=== PATIENT | male | born 1990 | race Caucasian/White ===

== ENCOUNTER 2017-04-29 01:05 | Emergency (ER) | payer BC ==
[~2017-04-29] VITALS: Ht 177.8 cm; Wt 77.0 kg
[2017-04-29 01:17] VITALS: BP 123/74; PULSE 97; TEMP 36.8; O2SAT 97; Ht 177.8 cm; Wt 77.0 kg
[2017-04-29] MEDS ORDERED: FEXO1TAB49 PO (01:53)
[2017-04-29 02:05] LABS: BUN/CREATININE RATIO 11.9 (10-20); CALCIUM 9.1 mg/dl (8.5-10.1); CREATININE 1.13 mg/dl (0.60-1.40); POTASSIUM 4.2 mmol/L (3.5-5.1)
--- NOTE | 2017-04-29 02:52 | EMERGENCY ROOM VISIT NOTE ---
History Report prepared by Bruno: Faith Khan Under the Supervision of: Dr. Cecily Arredondo D.O. First contact with patient: 01:12 Chief Complaint: ALCOHOL OVERDOSE Stated Complaint: ETOH Nursing Triage Summary: found passed out. 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 The patient presents to the ED by EMS. He states that he is a [employer] alumni who is visiting for the game. He has been drinking all day today. He has nowhere to stay and was found sleeping in a lobby. He denies any fall or injury. The history is limited due to the patient' s intoxication. Source of History: patient History Limited By: intoxication Onset: PATTERN ATTENDANT Position: other (global) Quality: other (alcohol intoxication) Timing: other (persistent) Note: Pt denies fall or injury. Review of Systems See HPI for pertinent positives & negatives. A total of 10 systems reviewed and were otherwise negative. Past Medical & Surgical Medical Problems: (1) ACNE NEC (2) Asthma (3) History of repair of inguinal hernia Family History No pertinent family history stated. Social History Smoking Status: Never Smoker Alcohol Use: occasionally Occupation Status: employed Current/Historical Medications Scheduled Fexofenadine Hcl (Sophia Allergy), 1 TAB PO DAILY Allergies Coded Allergies: Dust (Verified Allergy, Unknown, + allergy test, 04/29/17) Molds & Smuts (Verified Allergy, Unknown, + allergy test, 04/29/17) POLLEN (Verified Allergy, Unknown, + allergy test, 04/29/17) Physical Exam Vital Signs Date Time Temp Pulse Resp B/P (MAP) Pulse Ox O2 Delivery O2 Flow Rate FiO2 04/29/17 01:49 Room Air 04/29/17 01:49 Room Air 04/29/17 01:17 36.8 97 18 123/74 97 Room Air 04/29/17 01:15 95 Physical Exam GENERAL: faint smell of alcohol, alert, well appearing, well nourished, no distress, non-toxic EYE EXAM: normal conjunctiva, PERRL and EOM's grossly intact OROPHARYNX: no exudate, no erythema, lips, buccal mucosa, and tongue normal and mucous membranes are moist NECK: supple, no nuchal rigidity, no adenopathy, non-tender LUNGS: Clear to auscultation. Normal chest wall mechanics no wheezes/rhonchi/ rales HEART: no murmurs, S1 normal and S2 normal , no chest wall tenderness/crepitus ABDOMEN: abdomen soft, non-tender, normo-active bowel sounds, no masses, no rebound or guarding. BACK: Back is symmetrical on inspection and there is no deformity, no midline tenderness, no CVA tenderness. SKIN: no rashes and no bruising UPPER EXTREMITIES: upper extremities are grossly normal. Normal pulses, no evidence of trauma. LOWER EXTREMITIES: No pitting edema. No evidence of trauma, no deformities, normal pulses. NEURO EXAM: Normal sensorium, cranial nerves II-XII grossly intact, normal speech, no gross weakness of arms, no gross weakness of legs. Medical Decision & Procedures Laboratory Results 04/29/17 01:31 Test 04/29/17 01:31 Anion Gap 8.0 mmol/L (3-11) Est Creatinine Clear Calc Drug Dose 104.1 ml/min Estimated GFR () 104.9 Estimated GFR (Non- 90.5 BUN/Creatinine Ratio 11.9 (10-20) Calcium Level 9.1 mg/dl (8.5-10.1) Ethyl Alcohol mg/dL 203.0 mg/dl (0-3) Laboratory results per my review. ED Course 0143: The patient was evaluated in room A11A. A complete history and physical exam was performed. 0246: Upon reevaluation, the patient is stable. I discussed the findings and the treatment plan with the patient and his sober friend. They verbalize agreement and understanding. He was discharged home with his sober friend. Medical Decision Differential diagnosis includes etiologies such as alcohol intoxication, toxicologic, infection, hypoglycemia, electrolyte abnormalities, cardiac sources , intracerebral event, neurologic, as well as others were entertained. Patient monitored her for several hours, eventually a sober friend did come. Patient stable vital signs, no evidence of trauma and no history of trauma per his recollection upon increased sobriety. Patient tolerating by mouth and had a steady gait. Discussed with patient responsible use of alcohol, symptoms to watch and return for, he verbalized understanding was agreeable with plan. I have a low suspicion for any additional traumatic injury, or other organic pathology at this time. Medication Reconcilliation Current Medication List: was personally reviewed by me Blood Pressure Screening Patient's blood pressure: Normal blood pressure Blood pressure disposition: Did not require urgent referral Impression Primary Impression: Alcohol use with intoxication Scribe Attestation The scribe's documentation has been prepared under my direction and personally reviewed by me in its entirety. I confirm that the note above accurately reflects all work, treatment, procedures, and medical decision making performed by me. Departure Information Dispostion Home / Self-Care Referrals No Doctor, Assigned (PCP) Patient Instructions My [facility] Additional Instructions Please drink responsibly and in a safe location. Do not drink and drive. If you have any new or concerning symptoms, please return the emergency room.
== END 2017-04-29 02:59 | disposition home or self-care (01) ==
LOC: C.EDA 01:06
DX: F10.920 Alcohol use, unspecified with intoxication, uncomplicated (principal); J45.909 Unspecified asthma, uncomplicated; L70.9 Acne, unspecified